=== PATIENT | female | born 1940 | race Caucasian/White ===

== ENCOUNTER → 2017-11-29 | Outpatient (CLI) | payer MEDICARE ==
[~2017-11-29] MED LIST: ACET-1600 PO; CHOL10002 PO; FENO160T PO; FURO-93 PO; METF500T5 PO; NADO20TA PO; OMEP40CA6 PO; POTA10CA PO; SITA100T PO
[2017-11-29 11:56] LABS: ALBUMIN 3.5 g/dL (3.4-5.0); ANION GAP 7 mmol/L (5-15); CALCIUM 9.7 mg/dL (8.5-10.1); CHLORIDE 101 mmol/L (98-107)
[2017-11-29 12:05] LABS: ALANINE AMINOTRANSFERASE 18 U/L (12-78); ALKALINE PHOSPHATASE 46 U/L (45-117); BILIRUBIN,TOTAL 0.7 mg/dL (0.2-1.0); CREATININE 1.19 mg/dL (0.55-1.02); TOTAL PROTEIN 7.7 g/dL (6.4-8.2)
[2017-11-29 15:24] LABS: BASOPHILS % (AUTO) 1 % (0-1); EOSINOPHILS # (AUTO) 0.13 x10^3/uL (0-0.4); EOSINOPHILS % (AUTO) 1 % (1-7); LYMPHOCYTES # (AUTO) 3.36 x10^3/uL (1-3.4); LYMPHOCYTES % (AUTO) 34 % (22-44); MD SCAN; MEAN CORPUSCULAR HEMOGLOBIN 28.5 pg (27.0-34.8); MEAN CORPUSCULAR HGB CONC 32.7 g/dL (32.4-35.8); MEAN CORPUSCULAR VOLUME 87.1 fL (80-100); MEAN PLATELET VOLUME 11.6 fL (7.4-10.4); MONOCYTES # (AUTO) 0.77 x10^3/uL (0.2-0.8); MONOCYTES % (AUTO) 8 % (2-9); NEUTROPHILS # (AUTO) 5.59 x10^3/uL (1.8-6.8); NEUTROPHILS % (AUTO) 56 % (42-75); PLATELET COUNT 202 x10^3/uL (130-400); RED BLOOD COUNT 4.52 x10^6/uL (3.82-5.3); RED CELL DISTRIBUTION WIDTH 24.8 % (9.6-15.2)
== END | disposition home or self-care (01) ==
LOC: STAR 10:21
PROVIDERS: ATTEND Internal Medicine
DX: Z01.818 Encounter for other preprocedural examination (principal); I49.8 Other specified cardiac arrhythmias; K74.60 Unspecified cirrhosis of liver
CPT/HCPCS: 36415; 80053; 85025; 93005

== ENCOUNTER 2017-12-06 07:55 | Day surgery (SDC) | payer MEDICARE ==
[~2017-12-06] VITALS: Ht 157.5 cm; Wt 83.2 kg
[2017-12-06 08:57] VITALS: BP 124/77
[2017-12-06] MEDS ORDERED: LACTATED RINGERS 1,000 ML IV SCH (09:00)
[2017-12-06] MEDS ORDERED: SUCCINYLCHOLINE 20 MG/ML, 10ML ONE (09:50)
[2017-12-06] MEDS ORDERED: PROPOFOL 10 MG/ML, 20ML ONE (09:50)
[2017-12-06] MEDS ORDERED: hydrALAzine 20 MG/ML, 1ML IV PRN (10:30)
[2017-12-06] MEDS ORDERED: OXYcodone 5 MG/5 ML ORAL.SOL UDC PO PRN (10:30)
[2017-12-06] MEDS ORDERED: PROMETHAZINE 25 MG/ML, 1ML IV PRN (10:30)
[2017-12-06] MEDS ORDERED: LABETALOL 5MG/ML, 20ML IV PRN (10:30)
[2017-12-06] MEDS ORDERED: ALBUTEROL SULFATE 2.5 MG/3 ML NPPB PRN (10:30)
[2017-12-06] MEDS ORDERED: KETOROLAC 30 MG/1 ML IV PRN (10:30)
[2017-12-06] MEDS ORDERED: FENTANYL PF 100 MCG/2ML IV PRN (10:30)
[2017-12-06] MEDS ORDERED: METOCLOPRAMIDE 5 MG/ML, 2ML IV PRN (10:30)
[2017-12-06] MEDS ORDERED: ONDANSETRON 2MG/ML, 2ML IVPush PRN (10:30)
[2017-12-06] MEDS ORDERED: HYDROmorphone 1 MG/ML, 1ML IV PRN (10:30)
[2017-12-06] MEDS ORDERED: MEPERIDINE/PF 25MG/0.5ML IVPush PRN (10:30)
== END 2017-12-06 11:30 ==
LOC: OUT 07:55
PROVIDERS: ATTEND Internal Medicine
DX: I85.00 Esophageal varices without bleeding (principal); K76.6 Portal hypertension; K31.89 Other diseases of stomach and duodenum
CPT/HCPCS: 43244; 82962; J0330; J2704; J7120

== ENCOUNTER 2017-12-17 09:37 | Day surgery (SDC) | payer MEDICARE ==
[2017-12-14 10:15] LABS: ALANINE AMINOTRANSFERASE 18 U/L (12-78); ALBUMIN 3.5 g/dL (3.4-5.0); ANION GAP 11 mmol/L (5-15); CALCIUM 9.8 mg/dL (8.5-10.1); CHLORIDE 101 mmol/L (98-107); CREATININE 1.14 mg/dL (0.55-1.02)
[2017-12-14 10:18] LABS: INTERNATIONAL NORMALIZED RATIO 1.16 (0.93-1.1)
[2017-12-14 10:18] LABS: ALKALINE PHOSPHATASE 57 U/L (45-117); BILIRUBIN,TOTAL 0.7 mg/dL (0.2-1.0)
[2017-12-14 10:25] LABS: MEAN CORPUSCULAR HEMOGLOBIN 28.3 pg (27.0-34.8); MEAN CORPUSCULAR HGB CONC 32.7 g/dL (32.4-35.8); MEAN CORPUSCULAR VOLUME 86.6 fL (80-100); MEAN PLATELET VOLUME 11.5 fL (7.4-10.4); PLATELET COUNT 231 x10^3/uL (130-400); RED BLOOD COUNT 4.67 x10^6/uL (3.82-5.3); RED CELL DISTRIBUTION WIDTH 24.4 % (9.6-15.2)
[2017-12-14 10:39] LABS: BASOPHILS # (AUTO) 0.07 x10^3/uL (0-0.1); BASOPHILS % (AUTO) 1 % (0-1); EOSINOPHILS % (AUTO) 3 % (1-7); LYMPHOCYTES # (AUTO) 4.44 x10^3/uL (1-3.4); LYMPHOCYTES % (AUTO) 39 % (22-44); MD SCAN; MONOCYTES # (AUTO) 0.79 x10^3/uL (0.2-0.8); MONOCYTES % (AUTO) 7 % (2-9); NEUTROPHILS # (AUTO) 5.91 x10^3/uL (1.8-6.8); NEUTROPHILS % (AUTO) 51 % (42-75)
[2017-12-14 10:42] LABS: HCT (SEDRATE) 40.5 % (34.6-47.8)
[2017-12-14 11:48] LABS: MICROSCOPIC INDICATED
[~2017-12-17] VITALS: Ht 157.5 cm; Wt 80.9 kg
[~2017-12-17 09:37] MED LIST changes: +HYDR-3240 PO
[2017-12-17 10:13] VITALS: BP 124/81
[2017-12-17] MEDS ORDERED: LACTATED RINGERS 1,000 ML IV SCH (10:46)
[2017-12-17] MEDS ORDERED: MIDAZOLAM 1 MG/ML, 2ML ONE (11:20)
[2017-12-17] MEDS ORDERED: FENTANYL PF 100 MCG/2ML ONE (11:20)
[2017-12-17] MEDS ORDERED: BUPIVACAINE/PF-EPI 0.5% 1:200K ONE (11:52)
[2017-12-17] MEDS ORDERED: OMNIPAQUE 180 MG/ML, 20ML VIAL ONE (13:11)
[2017-12-17] MEDS ORDERED: HYDROmorphone 1 MG/ML, 1ML IV PRN (13:30)
[2017-12-17] MEDS ORDERED: MEPERIDINE/PF 25MG/0.5ML IVPush PRN (13:30)
[2017-12-17] MEDS ORDERED: ONDANSETRON 2MG/ML, 2ML IV PRN (13:30)
[2017-12-17] MEDS ORDERED: ALBUTEROL SULFATE 2.5 MG/3 ML NPPB PRN (13:30)
[2017-12-17] MEDS ORDERED: PROMETHAZINE 25 MG/ML, 1ML IV PRN (13:30)
[2017-12-17] MEDS ORDERED: hydrALAzine 20 MG/ML, 1ML IV PRN (13:30)
[2017-12-17] MEDS ORDERED: OXYcodone 5 MG/5 ML ORAL.SOL UDC PO PRN (13:30)
[2017-12-17] MEDS ORDERED: FENTANYL PF 100 MCG/2ML IV PRN (13:30)
[2017-12-17] MEDS ORDERED: DIAZEPAM 5 MG/ML, 2ML IVPush PRN (13:30)
[2017-12-17] MEDS ORDERED: HYDROcodone/APAP 7.5-325MG/15ML UDC PO PRN (13:30)
[2017-12-17] MEDS ORDERED: ACETAMINOPHEN 325 MG TABLET PO PRN (13:30)
[2017-12-17] MEDS ORDERED: LABETALOL 5MG/ML, 20ML IV PRN (13:30)
[2017-12-17] MEDS ORDERED: EPHEDRINE 50 MG/ML, 1ML IVPush PRN (13:30)
[2017-12-17] MEDS ORDERED: ONDANSETRON 2MG/ML, 2ML ONE ×2 (13:39→15:39)
[2017-12-17] MEDS ORDERED: CEFAZOLIN 1,000 MG ONE (15:39)
[2017-12-17] MEDS ORDERED: NEOSTIGMINE 1 MG/ML, 10ML ONE (15:39)
[2017-12-17] MEDS ORDERED: GLYCOPYRROLATE 0.4 MG/2 ML, 2ML ONE (15:39)
[2017-12-17] MEDS ORDERED: DEXAMETHASONE 4 MG/ML, 1ML ONE (15:39)
[2017-12-17] MEDS ORDERED: SUCCINYLCHOLINE 20 MG/ML, 10ML ONE (15:39)
[2017-12-17] MEDS ORDERED: PROPOFOL 10 MG/ML, 20ML ONE (15:39)
[2017-12-17] MEDS ORDERED: ROCURONIUM 10MG/ML,5ML ONE (15:39)
== END 2017-12-17 16:05 | disposition home or self-care (01) ==
LOC: OUT 09:37
PROVIDERS: ATTEND Orthopaedic Surgery Orthopaedic Surgery of the Spine
DX: M80.88XA Other osteoporosis with current pathological fracture, vertebra(e), initial encounter for fracture (principal); I10 Essential (primary) hypertension; E11.9 Type 2 diabetes mellitus without complications; K21.9 Gastro-esophageal reflux disease without esophagitis; F17.210 Nicotine dependence, cigarettes, uncomplicated; M54.5 Low back pain; K74.60 Unspecified cirrhosis of liver; Z96.641 Presence of right artificial hip joint; Z90.49 Acquired absence of other specified parts of digestive tract; Z96.651 Presence of right artificial knee joint; Z91.419 Personal history of unspecified adult abuse; Z79.899 Other long term (current) drug therapy; Z98.890 Other specified postprocedural states; Z87.19 Personal history of other diseases of the digestive system
CPT/HCPCS: 22513; 36415; 71046; 72100; 80053; 81001; 82962; 85025; 85610; 85651; 85730; 88307; 88311; C1713; J0330; J0690; J1100; J2250; J2405; J2704; J2710; J3010; J7120; Q9965